=== PATIENT | male | born 1980 | race Caucasian/White ===

== ENCOUNTER 2018-05-13 19:01 | Day surgery (SDC) | payer BC, OTHER ==
[~2018-05-13] VITALS: Ht 172.7 cm; Wt 95.9 kg
[2018-05-13] MEDS ORDERED: LIDOCAINE VISCOUS 2% SOLN 15ML UDC SS ONE (19:45)
[2018-05-13] MEDS ORDERED: PHENYLEPHRINE 0.5% NASAL SPRAY 15 ML As Ordered ONE (21:52)
[2018-05-13] MEDS ORDERED: PHENYLEPHRINE 0.5% NASAL SPRAY 15 ML ONE (22:15)
[2018-05-13 23:30] VITALS: BP 154/85
[2018-05-14] MEDS ORDERED: D5W/LR 1,000 ML IV SCH
--- NOTE | 2018-05-14 00:21 | REP ---
Clinical: Foreign body. Technique: Single lateral view of the soft tissue neck. Findings: A very thin linear foreign body measuring approximately 13 mm projects over the angle of the mandible possibly within the oropharynx and clinical correlation is recommended. Impression: Possible thin linear foreign body within the oropharynx. Electronically Signed by Yehuda Barnes MD 05/14/2018 12:12 A
--- NOTE | 2018-05-14 00:28 | REP ---
Clinical: Possible foreign body . Comparison: None . Technique: PA and lateral. Findings: The mediastinum and cardiac silhouette are normal. The lung dooley are clear and without acute consolidation, effusion, or pneumothorax. The skeletal structures are intact and normal. No radiodense foreign body identified. Impression: 1. No acute cardiopulmonary process. 2. No obvious radiodense foreign body identified. Electronically Signed by Yehuda Barnes MD 05/14/2018 12:19 A
--- NOTE | 2018-05-14 00:30 | REP ---
Clinical: Foreign body. Technique: AP and lateral views of the soft tissue neck. Findings: Lateral view demonstrates a very thin linear 13 mm foreign body projecting over the angle of the mandible within the oropharynx. Clinical correlation is recommended. The remainder of the examination appears normal. Prevertebral soft tissues are unremarkable. Impression: Possible thin 13 mm foreign body projecting over the angle of the mandible within the oral pharynx. Electronically Signed by Yehuda Barnes MD 05/14/2018 12:21 A
[2018-05-14 04:00] VITALS: BP 124/60
[2018-05-14] MEDS ORDERED: ROCURONIUM BROMIDE 50 MG/5 ML VIAL As Ordered ONE (07:53)
[2018-05-14] MEDS ORDERED: PROPOFOL 200 MG/20 ML VIAL As Ordered ONE (07:53)
[2018-05-14] MEDS ORDERED: dexameTHASONE 4 MG/ML 1ML VIAL (J1100) As Ordered ONE (07:53)
[2018-05-14] MEDS ORDERED: ONDANSETRON 4MG/2ML VIAL (J2405) As Ordered ONE (07:53)
[2018-05-14] MEDS ORDERED: MIDAZOLAM INJ 2 MG/2 ML VIAL (J2250) As Ordered ONE (07:53)
[2018-05-14] MEDS ORDERED: METOCLOPRAMIDE INJ 10MG/2ML VIAL (J2765) As Ordered ONE (07:53)
[2018-05-14] MEDS ORDERED: LIDOCAINE 2% INJ 100 MG/5 ML SDV (FOR ANES.) As Ordered ONE (07:53)
[2018-05-14] MEDS ORDERED: SUCCINYLCHOLINE 100 MG/5 ML SYRINGE (J0330) As Ordered ONE (07:53)
[2018-05-14] MEDS ORDERED: fentaNYL 250 MCG/5 ML INJECTION (J3010) As Ordered ONE (07:53)
[2018-05-14] MEDS ORDERED: SUGAMMADEX SODIUM 500 MG/5 ML VIAL (BRIDION) As Ordered ONE (07:54)
[2018-05-14] MEDS ORDERED: GLYCOPYRROLATE INJ 0.2 MG/ML 2 ML VIAL As Ordered ONE (08:09)
[2018-05-14] MEDS ORDERED: SEVOFLURANE INHAL SOLN 250 ML BTL As Ordered ONE (08:12)
[2018-05-14] MEDS ORDERED: ONDANSETRON 4MG/2ML VIAL (J2405) IV PRN (09:00)
[2018-05-14] MEDS ORDERED: fentaNYL 100 MCG/2 ML INJECTION (J3010) IV PRN (09:00)
[2018-05-14] MEDS ORDERED: LR 1,000 ML IV SCH (09:00)
--- NOTE | 2018-05-14 09:21 | REP ---
Soft-tissue neck x-ray: Single view. History: Foreign body in throat. Comparison radiograph is from May 13, 2018. Findings: The current lateral view demonstrates a clamp overlying the cranium. An orotracheal tube is seen in place. The curvilinear density seen on yesterday's radiograph is also felt to be present on the current radiograph superimposed on the orotracheal tube at the level of the mandibular angles. I cannot resolve the location of this on the orthogonal AP radiograph from May 13, 2018. Electronically Signed by Bud Graves MD 05/14/2018 06:00 P
[2018-05-14 09:45] VITALS: BP 121/79
[2018-05-14 10:15] VITALS: BP 119/76
--- NOTE | 2018-05-18 14:25 | RO ---
DATE OF PROCEDURE: 05/13/2018 PREPROCEDURE DIAGNOSIS: Foreign body of the pharynx. POSTPROCEDURE DIAGNOSIS: Foreign body of the pharynx. SURGEON: Jones Nelson MD SALES ORDER CLERK: ANESTHESIA: PROCEDURE: Exploration for foreign body of pharynx with direct examination and direct laryngoscopy. Removal of foreign body. INDICATIONS: This is a 38-year-old that was eating a grilled burger and had previously used a grill brush to clean it. Immediately upon swallowing some of the meat, it felt like he got something lodged in his throat. He says that he could feel the presence of a foreign object poking him. On examination in the emergency room, some streaked blood could be seen in the region of the right inferior tonsillar pole and base of tongue. No discreet object could be identified. The patient continued to feel that there was a foreign body and so it was elected to bring him into the hospital for an examination under anesthesia. Since he had eaten two hours prior to this visit, we had to wait until the speech therapist technician to proceed. DESCRIPTION OF PROCEDURE: He was brought to the operating room. General endotracheal anesthesia using the small #6 endotracheal tube. The Zane-Carlos gag was inserted into the oral cavity with headlight inspection. Inspection of the tonsil area revealed no foreign body within the tonsil. The pharynx itself appeared to be clear. This was then removed and a double lighted laryngoscope was inserted into the oral cavity with inspection of the inferior tonsillar pole, vallecula, base of tongue, and piriform fossa were examined. There was evidence of some hypertrophic lymphoid tissue in the region of the base of the tongue, but no dramatic foreign body was identified. After 15 minutes of looking with the laryngoscope, an x-ray was taken to see if in fact it had passed and the x-ray suggested that there was still the presence of a opaque, very small narrow object. The double lighted laryngoscope was inserted back into the oropharynx and another inspection was performed. This time, in the posterior pharynx, there appeared to be a 1 cm rigid, black, very small object that appeared top be consistent with a bristle from a brush. This was grasped with an alligator and removed. Another inspection was done after this and no other foreign bodies were seen within the tonsil, base of tongue or vallecula. The throat was suctioned. The patient was then awakened, extubated, and sent to recovery in satisfactory condition. He will be followed up in 48 hours with an office visit.
--- NOTE | 2018-05-19 02:14 | CR ---
DATE OF CONSULTATION: 05/13/2018 This consultation is requested in the emergency room (ER) by the emergency room physician for a foreign body in the throat. This is a 38-year-old that was grilling a hamburger. After using a grill brush and immediately felt that there was a foreign body lodged in his throat. He localized it to the right side of his pharynx. He felt he could at one point touch it but was unable to reproduce that. The patient was evaluated by gastroenterology (GI) and they were not able to identify a foreign body. The soft tissue actually did show what appeared to be a thin opacification somewhere in the oropharynx. It could not be localized on soft tissue x-ray. On examination, he was in no acute distress. Inspection of the pharynx directly showed that he had his tonsils present. They were endophytic and no lesions were identified. No foreign bodies were seen. Palpation of the tongue base and the tonsil revealed no firm foreign body. Fiberoptic laryngoscopy was then performed. Although there was some blood streaking seen in the region of the right tongue base towards the vallecula, no foreign body was noted. He continued to feel this was the area where there was a foreign body located and after attempts to explore this area with the fiberoptic scope and dislodge it, still no foreign body was seen. Repeat x-ray after all this manipulation revealed still there was some type of opacification in his oropharynx. It was elected to bring him to the operating room for direct laryngoscopy because he had had a meal within 2 hours, the anesthesiologist recommended we wait up to 8 hours following that which would have been a 4 a.m. time frame to do this so it was elected to take him to the operating room first thing in the morning at 7:30.
== END 2018-05-14 10:45 | disposition home or self-care (01) ==
LOC: M ED 19:01 → M SDC 22:30 → M PED 23:07 → M SDC 05-14 10:45
PROVIDERS: ATTEND Specialist
DX: T17.298A Other foreign object in pharynx causing other injury, initial encounter (principal); K21.9 Gastro-esophageal reflux disease without esophagitis; X58.XXXA Exposure to other specified factors, initial encounter; Y92.89 Other specified places as the place of occurrence of the external cause; Y93.89 Activity, other specified; Y99.8 Other external cause status
CPT/HCPCS: 31530; 70360; 71046; 88300; 99284; J0330; J1100; J2250; J2405; J2765; J3010